=== PATIENT | female | born 1950 | race Hispanic/Latino ===

== ENCOUNTER 2020-04-15 14:12 | Emergency (ER) | payer SELFPAY ==
[2020-04-15 15:22] LABS: Absolute Lymphocytes (CBC) 1.4 K/uL (0.7-4.9); Basophils % 0.3 % (0-1.3); Hematocrit 36.5 % (36.0-45.0); Lymphocytes % 22.1 % (15.3-44.8); MPV 7.6 fL (7.6-11.3); RBC Red Blood Cell Count 4.14 M/uL (3.86-4.86)
[2020-04-15] MEDS ORDERED: NA CHLORIDE 0.9% 1,000 ML ONE (15:27)
[2020-04-15 15:38] LABS: Bilirubin Direct 0.1 mg/dL (0-0.2); Bilirubin Total 0.4 mg/dL (0.2-1.0); Potassium 3.6 mmol/L (3.5-5.1); Protein, Total 7.9 g/dL (6.4-8.2)
[2020-04-15 15:39] LABS: Urine Blood NEGATIVE (NEG); Urine Glucose NEGATIVE (NEG); Urine Protein 2+ (NEG); Urine Specific Gravity >1.030 (1.005-1.030); Urine pH 5.5 (5.0-7.0)
[2020-04-15 15:53] LABS: Urine Bacteria 20-50 /HPF (<20); Urine Culture Reflex Order REFLEXED; Urine RBC NONE SEEN /HPF (NONE SEEN)
--- NOTE | 2020-04-15 16:12 | EDPHYS ---
Physician Documentation [facility] Name: Luz Nichols Age: 69 yrs Sex: Female : 1950 Arrival Date: 04/15/2020 Time: 14:19 Bed 19 Private MD: ED Physician Bernardo Sargent HPI: 04/15 14:59 This 69 yrs old Female presents to ER via EMS with complaints of Diarrhea. pm1 14:59 The patient presents to the emergency department with nausea, that is mild, diarrhea, 3 pm1 times per day for the past 3 days. Onset: The symptoms/episode began/occurred 3 day(s) ago. Possible causes: unknown. The symptoms are aggravated by nothing. The symptoms are alleviated by nothing. Associated signs and symptoms: Pertinent positives: decreased appetite, Pertinent negatives: abdominal pain, fever. Severity of symptoms: in the emergency department the symptoms are unchanged. The patient has not experienced similar symptoms in the past. The patient has not recently seen a physician. Historical: - Allergies: 14:21 No Known Allergies; ca1 - PMHx: 14:21 Hypertension; Diabetes - IDDM; Diabetes - NIDDM; High Cholesterol; ca1 - Immunization history:: Adult Immunizations up to date. - Social history:: Smoking status: Patient denies any tobacco usage or history of. ROS: 14:59 Constitutional: Negative for fever, chills, and weight loss, Cardiovascular: Negative pm1 for chest pain, palpitations, and edema, Respiratory: Negative for shortness of breath, cough, wheezing, and pleuritic chest pain. 14:59 Back: Negative for injury and pain, : Negative for injury, bleeding, discharge, and swelling, MS/Extremity: Negative for injury and deformity, Skin: Negative for injury, rash, and discoloration, Neuro: Negative for headache, weakness, numbness, tingling, and seizure. 14:59 Abdomen/GI: Positive for nausea, diarrhea, Negative for abdominal pain, vomiting. Exam: 14:59 Constitutional: This is a well developed, well nourished patient who is awake, alert, pm1 and in no acute distress. Head/Face: Normocephalic, atraumatic. Neck: Trachea midline, no thyromegaly or masses palpated, and no cervical lymphadenopathy. Supple, full range of motion without nuchal rigidity, or vertebral point tenderness. No Meningismus. Chest/axilla: Normal chest wall appearance and motion. Nontender with no deformity. No lesions are appreciated. 14:59 Back: No spinal tenderness. No costovertebral tenderness. Full range of motion. Skin: Warm, dry with normal turgor. Normal color with no rashes, no lesions, and no evidence of cellulitis. MS/ Extremity: Pulses equal, no cyanosis. Neurovascular intact. Full, normal range of motion. 14:59 Cardiovascular: Exam negative for acute changes, Rate: normal, Rhythm: regular, Pulses: no pulse deficits are appreciated. 14:59 Respiratory: Exam negative for acute changes, respiratory distress, shortness of breath. 14:59 Abdomen/GI: Inspection: obese Palpation: abdomen is soft and non-tender, in all quadrants. 14:59 Neuro: Exam negative for acute changes, Orientation: is normal, Mentation: is normal, Motor: is normal, moves all fours. Vital Signs: 14:34 BP 170 / 75; Pulse 83; Resp 17 S; Temp 99(O); Pulse Ox 95% on R/A; Weight 86.18 kg (R); ca1 Height 5 ft. 1 in. (154.94 cm) (R); Pain 0/10; 15:32 BP 165 / 80; Pulse 87; Resp 16 S; Pulse Ox 95% on R/A; ca1 16:48 BP 160 / 83; Pulse 88; Resp 15 S; Pulse Ox 96% on R/A; ca1 17:30 BP 149 / 80; Pulse 85; Resp 16 S; Pulse Ox 97% on R/A; aa5 14:34 Body Mass Index 35.90 (86.18 kg, 154.94 cm) ca1 MDM: 14:24 Patient medically screened. [facility] 16:10 Data reviewed: vital signs. Data interpreted: Pulse oximetry: on room air is 95 %. pm1 Interpretation: normal. Counseling: I had a detailed discussion with the patient and/or guardian regarding: the historical points, exam findings, and any diagnostic results supporting the discharge/admit diagnosis, lab results, the need for outpatient follow up, to return to the emergency department if symptoms worsen or persist or if there are any questions or concerns that arise at home. 16:54 ED course: Patient requested additional IV fluids. Patient's vital signs WNLs. will pm1 give additional 500 mL. 04/15 14:35 Order name: Basic Metabolic Panel pm1 04/15 14:35 Order name: CBC with Diff; Complete Time: 16:02 pm1 04/15 14:35 Order name: Hepatic Function pm1 04/15 14:35 Order name: Lipase; Complete Time: 16:02 pm1 04/15 14:35 Order name: Flu; Complete Time: 16:41 pm1 04/15 14:35 Order name: COVID-19 pm1 04/15 14:35 Order name: Urine Microscopic Only; Complete Time: 16:02 pm1 04/15 14:36 Order name: Basic Metabolic Panel; Complete Time: 16:02 EDMS 04/15 14:36 Order name: Liver (Hepatic) Function; Complete Time: 16:02 EDMO 04/15 14:44 Order name: Glucose, Ancillary Testing; Complete Time: 15:15 EDMS 04/15 15:36 Order name: Urine Dipstick--Ancillary (enter results); Complete Time: 16:02 wy 04/15 15:55 Order name: Urine Culture EDMO 04/15 14:35 Order name: IV Saline Lock; Complete Time: 15:20 pm1 04/15 14:35 Order name: Labs collected and sent; Complete Time: 15:20 pm1 04/15 14:35 Order name: Urine Dipstick-Ancillary (obtain specimen); Complete Time: 15:31 pm1 Administered Medications: 15:20 Drug: NS 0.9% 1000 ml Route: IV; Rate: 1000 ml; Site: right forearm; ca1 16:30 Follow up: Response: No adverse reaction; IV Status: Completed infusion; IV Intake: ca1 1000ml 16:57 Drug: NS 0.9% 500 ml Route: IV; Rate: bolus; Site: right forearm; ca1 17:30 Follow up: IV Status: Completed infusion; IV Intake: 500ml aa5 Disposition: 04/16 08:56 Co-signature as Attending Physician, Bernardo Sargent MD I agree with the assessment and alla plan of care. Disposition: 04/15/20 16:11 Discharged to Home. Impression: Diarrhea, unspecified. - Condition is Stable. - Discharge Instructions: Food Choices to Help Relieve Diarrhea, Adult, Diarrhea, Adult, Viral Gastroenteritis, Adult. - Medication Reconciliation Form, Thank You Letter, Antibiotic Education, Prescription Opioid Use form. - Follow up: Emergency Department; When: As needed; Reason: Worsening of condition. Follow up: Private Physician; When: 2 - 3 days; Reason: Recheck today's complaints, Continuance of care, Re-evaluation by your physician. - Problem is new. - Symptoms have improved. Signatures: Dispatcher [employer] EDMS Bernardo Sargent, Carlos Osullivan MD, cha, WASTE MANAGEMENT SPECIALIST WASTE MANAGEMENT SPECIALIST pm1 Amy Alvarado RN RN ca1 Myesha Dubon RN aa5 Corrections: (The following items were deleted from the chart) 04/15 17:50 16:11 04/15/2020 16:11 Discharged to Home. Impression: Diarrhea, unspecified. Condition ca1 is Stable. Forms are Medication Reconciliation Form, Thank You Letter, Antibiotic Education, Prescription Opioid Use. Follow up: Emergency Department; When: As needed; Reason: Worsening of condition. Follow up: Private Physician; When: 2 - 3 days; Reason: Recheck today's complaints, Continuance of care, Re-evaluation by your physician. Problem is new. Symptoms have improved. pm1
--- NOTE | 2020-04-15 16:12 | ER ---
Nurse's Notes [facility] Name: Luz Nichols Age: 69 yrs Sex: Female : 1950 Arrival Date: 04/15/2020 Time: 14:19 Bed 19 Private MD: Diagnosis: Diarrhea, unspecified Presentation: 04/15 14:20 Chief complaint: EMS states: Diarrhea and nausea x 3 days. Coronavirus screen: Client ca1 denies travel out of the [place] in the last 14 days. At this time, the client does not indicate any symptoms associated with coronavirus-19. Ebola Screen: Patient negative for fever greater than or equal to 101.5 degrees Fahrenheit, and additional compatible Ebola Virus Disease symptoms Patient denies exposure to infectious person. Patient denies travel to an Ebola-affected area in the 21 days before illness onset. No symptoms or risks identified at this time. Initial Sepsis Screen:. Risk Assessment: Do you want to hurt yourself or someone else? Patient reports no desire to harm self or others. Onset of symptoms was April 15, 2020. 14:20 Method Of Arrival: EMS: [facility] ca1 14:20 Acuity: MANDY 3 ca1 14:34 Chief complaint: Patient states: General body weakness, loss of appetite, diarrhea x ca1 3-4 episodes last night. Denies abdominal pain. Initial Sepsis Screen: Does the patient meet any 2 criteria? No. Patient's initial sepsis screen is negative. Does the patient have a suspected source of infection? No. Patient's initial sepsis screen is negative. Triage Assessment: 14:34 General: Appears in no apparent distress. comfortable, Behavior is calm, cooperative, ca1 appropriate for age. Pain: Denies pain. EENT: No deficits noted. Neuro: Level of Consciousness is awake, alert, obeys commands, Oriented to person, place, time, situation. Cardiovascular: Heart tones S1 S2 present Capillary refill < 3 seconds Patient's skin is warm and dry. Respiratory: Airway is patent Respiratory effort is even, unlabored, Respiratory pattern is regular, symmetrical, Breath sounds are clear bilaterally. GI: Abdomen is round non-distended, Bowel sounds present X 4 quads. Abd is soft and non tender X 4 quads. Reports diarrhea, nausea. : No signs and/or symptoms were reported regarding the genitourinary system. Derm: Skin is intact, is healthy with good turgor, Skin is pink, warm \T\ dry. Musculoskeletal: Circulation, motion, and sensation intact. Capillary refill < 3 seconds. Historical: - Allergies: 14:21 No Known Allergies; ca1 - PMHx: 14:21 Hypertension; Diabetes - IDDM; Diabetes - NIDDM; High Cholesterol; ca1 - Immunization history:: Adult Immunizations up to date. - Social history:: Smoking status: Patient denies any tobacco usage or history of. Screenin:37 Abuse screen: Denies threats or abuse. Denies injuries from another. Nutritional ca1 screening: No deficits noted. Tuberculosis screening: No symptoms or risk factors identified. Fall Risk IV access (20 points). Assessment: 14:37 Reassessment: see Triage assessment. ca1 15:32 Reassessment: Patient appears in no apparent distress at this time. No changes from ca1 previously documented assessment. Patient and/or family updated on plan of care and expected duration. Pain level reassessed. Patient is alert, oriented x 3, equal unlabored respirations, skin warm/dry/pink. 16:48 Reassessment: Patient appears in no apparent distress at this time. Patient and/or ca1 family updated on plan of care and expected duration. Pain level reassessed. Patient is alert, oriented x 3, equal unlabored respirations, skin warm/dry/pink. 17:16 Reassessment: IVF infusing. D/C once completed. CHONG Brunner, RN called family, will be ca1 here to pick her up at 1740. 17:45 Reassessment: Patient is alert, oriented x 3, equal unlabored respirations, skin aa5 warm/dry/pink. Vital Signs: 14:34 BP 170 / 75; Pulse 83; Resp 17 S; Temp 99(O); Pulse Ox 95% on R/A; Weight 86.18 kg (R); ca1 Height 5 ft. 1 in. (154.94 cm) (R); Pain 0/10; 15:32 BP 165 / 80; Pulse 87; Resp 16 S; Pulse Ox 95% on R/A; ca1 16:48 BP 160 / 83; Pulse 88; Resp 15 S; Pulse Ox 96% on R/A; ca1 17:30 BP 149 / 80; Pulse 85; Resp 16 S; Pulse Ox 97% on R/A; aa5 14:34 Body Mass Index 35.90 (86.18 kg, 154.94 cm) ca1 ED Course: 13:15 No provider procedures requiring assistance completed. Initial lab(s) drawn, by me, ca1 sent to lab. Flu and/or RSV swab sent to lab. Inserted saline lock: 20 gauge in right forearm, using aseptic technique. Blood collected. 14:19 Patient arrived in ED. ca1 14:21 Triage completed. ca1 14:21 Arm band placed on right wrist. ca1 14:23 Carlos Delcid NP is PHCP. pm1 14:23 Bernardo Sargent MD is Attending Physician. pm1 14:34 Amy Alvarado, MARY is Primary Nurse. ca1 14:37 Patient has correct armband on for positive identification. Placed in gown. Bed in low ca1 position. Call light in reach. Side rails up X2. Pulse ox on. NIBP on. Warm blanket given. 15:20 COVID-19 Sent. ca1 15:20 Flu Sent. ca1 17:45 IV discontinued, intact, bleeding controlled, No redness/swelling at site. Pressure aa5 dressing applied. Administered Medications: 15:20 Drug: NS 0.9% 1000 ml Route: IV; Rate: 1000 ml; Site: right forearm; ca1 16:30 Follow up: Response: No adverse reaction; IV Status: Completed infusion; IV Intake: ca1 1000ml 16:57 Drug: NS 0.9% 500 ml Route: IV; Rate: bolus; Site: right forearm; ca1 17:30 Follow up: IV Status: Completed infusion; IV Intake: 500ml aa5 Intake: 16:30 IV: 1000ml; Total: 1000ml. ca1 17:30 IV: 500ml; Total: 1500ml. aa5 Outcome: 16:11 Discharge ordered by . pm1 17:45 Discharged to home via wheelchair, with family. aa5 17:45 Condition: improved 17:45 Discharge instructions given to patient, Instructed on discharge instructions, follow up and referral plans. Demonstrated understanding of instructions, follow-up care, Pt and family instructed to quarantine until called with COVID-19 results (approximately 3-5 days) 17:50 Patient left the ED. ca1 Addendum: 04/19/2020 09:25 Addendum: Culture Results: Positive urine culture. Patient was not prescribed a a5 antibiotics at discharge. Report given to SHANTA for further evaluation and then to calciner feeder for follow up with patient. Prescription called-in to pharmacy of choice. to [facility] pharmacy in [place], [place] per pt's request. Called-in Cipro 500mg PO BID x 7 days per SHITAL [place]. 04/24/2020 16:35 Addendum: COVID-19 Result: Positive result giiven to ED physician to notify pt. i w Physician attempted to contact pt. Physician left voice mail for pt to call the ED back. Signatures: Rosalind Koehler, RN RN iw Myesha Dubon, RN RN aa5 Carlos Delcid, JUAN ANTONIO TELEPHONE ORDER SUPERVISOR pm1 Amy Alvarado RN RN ca1
[2020-04-15] MEDS ORDERED: NA CHLORIDE 0.9% 500 ML ONE (17:02)
== END 2020-04-15 17:50 | disposition home or self-care (01) ==
LOC: ER 14:12
DX: U07.1 COVID-19 (principal); R19.7 Diarrhea, unspecified
CPT/HCPCS: 36415; 80048; 80076; 81003; 81015; 82947; 83690; 85025; 87077; 87086; 87088; 87186; 87804; 96360; 96361; 99284; J7030; J7040; U0002

== ENCOUNTER 2020-05-03 16:43 | Emergency (ER) | payer SELFPAY ==
--- OUTSIDE RECORDS SUMMARY | 2020-05-03 16:45 | XMS REPORT ---
:1950 Author Organization eClinicalWorks Care Team Providers Name Role Phone Howell, Na Provider Role Unavailable Allergies, Adverse Reactions, Alerts Substance Reaction Event Type N.K.D.A. 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 Problem Neuropathy G62.9 Active Problem Osteoarthritis of multiple joints M15.9 Active Problem Abdominal bloating R14.0 Active Problem Type 2 diabetes mellitus with E11.65 Active hyperglycemia Problem Other specified diabetes mellitus E13.319 Active with unspecified diabetic retinopathy without macular edema Assessment Neuropathy G62.9 Active Assessment Mixed hyperlipidemia E78.2 Active 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.4 Active Assessment Primary osteoarthritis of right M17.11 Active knee Problem Obesity E66.9 Active Assessment HTN (hypertension) I10 Active Problem Anemia in chronic illness D63.8 Ac tive Assessment Type 2 diabetes mellitus with E11.65 Active hyperglycemia Problem Mixed hyperlipidemia E78.2 Active Medications Medication Code Code Instructions Start End Status Dosage System Date Date mihaela Ballesteros [facility] 10040169244 300u/ml Active 40 units subcutaneously daily once daily Lyrica [facility] 53242703941 75 MG Orally Once Active 1 capsule a day Amlodipine [facility] NAMED [facility] 96468219258 10MG Active TAKE ONE Besylate TABLET BY MOUTH ONCE DAILY GlipiZIDE [facility] NAM[facility] 37637272576 10MG Active TAKE ONE TABLET BY MOUTH TWICE DAILY Lovastatin [facility] NAMED [facility] 39371825047 10MG Active TAKE ONE TABLET BY MOUTH ONCE DAILY Simethicone [facility] NAM[facility] 55997985774 125 MG Orally Active 1 tablet Four times a day after meals and at bedtime as needed Metformin HCl [facility]AMED [facility] 39868243745 1000MG Active TAKE O NE TABLET BY MOUTH TWICE DAILY Lovastatin [facility]AM[facility] 53683522557 10MG Active TAKE ONE TABLET BY MOUTH ONCE DAILY Lisinopril [facility] NAM[facility] 35817963023 20MG Active TAKE ONE TABLET BY MOUTH TWICE DAILY Januvia [facility]AM[facility] 30954714192 100 MG Orally Active 1 tabl et Once a day Aspir-81 [facility] 04651741625 81 MG Orally Once Active 1 tablet a day Metformin HCl [facility] NAMED [facility] 81861126088 1000MG Active TAKE O NE TABLET BY MOUTH TWICE DAILY [facility] 86314932948 10 MG Orally Once Active 1 tablet a day GlipiZIDE [facility] NAMED [facility] 32002408377 10MG Active TAKE ONE TABLET BY MOUTH TWICE DAILY Lisinopril [facility] NAM[facility] 36240533566 20 MG Active TAKE 1 TABLET BY MOUTH TWICE DAILY [facility] 03336550884 10 MG Orally Once Active 1 tablet a day Results No Known Results Summary Purpose eClinicalWorks Submission
--- OUTSIDE RECORDS SUMMARY | 2020-05-03 16:45 | XMS REPORT ---
:1950 Author Organization [employer]Works Care Team Providers Name Role Phone Howell, Na Provider Role Unavailable Allergies, Adverse Reactions, Alerts Substance Reaction Event Type N.K.D.A. 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 Assessment Fatigue, unspecified type R53.83 Ac tive Assessment Lack of appetite R63.0 Active Assessment Diarrhea of infectious origin A09 Active Problem DM (diabetes mellitus), type 2 E11.9 Active Problem Diabetic neuropathy E11.40 Active Assessment Lab test positive for detection of U07.1 Active COVID-19 virus Problem HTN (hypertension) I10 Active Problem Abdominal bloating R14.0 Active Medications Medication Code Code Instructions Start End Status Dosage System Date [facility] 06353302044 100 MG Orally Active 1 tabl et Once a day Simethicone [facility] 93188233411 125 MG Orally Active 1 tablet Four times a day after meals and at bedtime as needed [facility] 88124152045 10 MG Orally Once Active 1 tablet a day Lyrica [facility] 28441890749 75 MG Orally Once Active 1 capsule a day GlipiZIDE [facility] 59854916536 10MG Active TAKE ONE TABLET BY MOUTH TWICE DAILY Amlodipine [facility] 85628851230 10MG Active TAKE ONE Besylate TABLET BY MOUTH ONCE DAILY GlipiZIDE [facility] 08137441898 10MG Active TAKE ONE TABLET BY MOUTH TWICE DAILY [facility] 79131009834 10 MG Orally Once Active 1 tablet a day Lovastatin [facility] 42417614915 10MG Active TAKE ONE TABLET BY MOUTH ONCE DAILY Lovastatin [facility] 90120648026 10MG Active TAKE ONE TABLET BY MOUTH ONCE DAILY Lisinopril [facility] 73061912764 20 MG Active TAKE 1 TABLET BY MOUTH TWICE DAILY Metformin HCl [facility] 61462999195 1000MG Active TAKE O NE TABLET BY MOUTH TWICE DAILY Feliberto Ballesteros [facility] 80092100516 300u/ml Active 40 units subcutaneously daily once daily Aspir-81 [facility] 11493231982 81 MG Orally Once Active 1 tablet a day Results No Known Results Summary Purpose eClinicalWorks Submission
--- OUTSIDE RECORDS SUMMARY | 2020-05-03 16:45 | XMS REPORT ---
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 knee Problem half-way current use of insulin Z79.4 Active Problem Neuropathy G62.9 Active Problem Osteoarthritis of multiple joints M15.9 Active Problem Abdominal bloating R14.0 Active Problem Type 2 diabetes mellitus with E11.65 Active hyperglycemia Problem Other specified diabetes mellitus E13.319 Active with unspecified diabetic retinopathy without macular edema Medications Medication Code System Code Instructions Start Date End Date Status Dosage Lisinopril [facility] 55266990255 20 MG Active TAKE 1 TABLET BY MOUTH TWICE DAILY Results No Known Results Summary Purpose eClinicalWorks Submission
--- OUTSIDE RECORDS SUMMARY | 2020-05-03 16:45 | XMS REPORT | Continuity of Care Document ---
:1950 Author Organization [facility] t Address [address] [place] [address] Care Team Providers Name Role Phone Unavailable Unavailable Unavailable Problems Condition Condition Condition Status Onset Resolution Last Treating Co mments Source Name Details Category Date Date Treatment Clinician Date Diabetic Diabetic Problem [facility] - [facility] l [facility] Clinics Obesity Obesity Problem [facility] HTN HTN Problem Active [facility] (hypertens (hypertens Muna kes - ion) ion) Memoria l [facility] ent Clinics terminal superintendent MCFP Problem Active [facility] current current [facility] - use of use of Memoria insulin insulin l [facility] Mixed Mixed Problem Active [facility] hyperlipid hyperlipid Muna kes - emia emia Memoria l [facility] ent Clinics Type 2 Type [address] [facility] diabetes diabetes [facility] - mellitus mellitus Memori a with with l hyperglyce hyperglyce Ou [facility] ent Clinics Osteoarthr Osteoarthr Problem Active [facility] itis of itis of [facility] - multiple multiple Memori a joints joints l 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 Other Other Problem Active [facility] specified specified Luke s - diabetes diabetes Memori a mellitus mellitus l with with Outpati unspecifie unspecifie en t d diabetic d diabetic Cl inics retinopath retinopath y without y without macular macular edema edema DM DM Problem Active [facility] (diabetes (diabetes Luke s - mellitus), mellitus), Me moria type 2 type 2 l [facility] Primary Primary Problem Active [facility] osteoarthr osteoarthr Muna kes - itis of itis of Memoria right knee right knee l [facility] ent Clinics Neuropathy Neuropathy Problem Active [facility] l [facility] Lack of Lack of Diagnosis Active [facility] appetite appetite [facility] - [facility] l [facility] ent Clinics Fatigue, Fatigue, Diagnosis Active [facility] unspecifie unspecifie Muna kes - d type d type Memoria l [facility] ent [facility] Diarrhea Diarrhea Diagnosis Active [facility] of of [facility] - infectious infectious Me moria origin origin l [facility] ent [facility] Lab test Lab test Diagnosis Active [facility] positive positive [facility] - for for Memoria detection detection l of of [facility] COVID-19 COVID-19 ent virus virus Clinics Allergies, Adverse Reactions, Alerts This patient has no known allergies or adverse reactions. Medications Ordered Filled Start Stop Current Ordering Indication Dosage Frequency Signature Comments Components Source Medication Medication Date Date Medication? Clinician (SIG) Name Name Lisinopril Lisinopril Yes Na Howell TAKE [address] [facility] [address] TABLET BY [facility]ukes - MOUTH Memoria TWICE l DAILY [facility] ent [facility] Januvia Januvia Yes Na Howell [address] [facility] l [facility] Simethicone Simethicone Yes Na Howell [address] [facility] after [facility] - meals and Memoria at bedtime l as needed [facility] ent [facility] Yes Na Howell [address] [facility] Lyrica Lyrica Yes Na Howell [address] [facility] GlipiZIDE GlipiZIDE Yes Na Howell TAKE ONE [facility] TABLET BY [facility] - MOUTH Memoria TWICE l DAILY [facility] Amlodipine Amlodipine Yes Na Howell TAKE ONE [facility] Besylate Besylate TABLET BY Muna kes - MOUTH ONCE Memoria DAILY l [facility] ent [facility] GlipiZIDE GlipiZIDE Yes Na Howell TAKE ONE [facility] TABLET BY [facility] - MOUTH Memoria TWICE l DAILY [facility] ent [facility] Yes Na Howell [address] [facility] Lovastatin Lovastatin Yes Na Howell TAKE ONE [facility] TABLET BY [facility] - MOUTH ONCE Memoria DAILY l [facility] Lovastatin Lovastatin Yes Na Howell TAKE ONE [facility] TABLET BY [facility] - MOUTH ONCE Memoria DAILY l [facility] ent [facility] Metformin Metformin Yes Na Howell TAKE ONE [facility] HCl HCl TABLET BY [facility] - MOUTH Memoria TWICE l DAILY Outpati ent Clinics Feliberto Dao Yes Na Howell [address] SoloStar SoloStar daily [facility] l Outpati ent Clinics -81 Aspir-81 Yes Na Howell [address] [facility] l Outpati ent Clinics Procedures This patient has no known procedures. Encounters Start End Encounter Admission Attending Care Care Encounter Source Date/Time Date/Time Type Type Clinicians Facility Department ID 2020-04-27 2020-04-27 [facility] [id number] [facility] 15:20:00 15:20:00 [employer] [facility] Out[facility] ent Clinics 2020-04-24 2020-04-24 [facility] [id number] 14:06:00 14:06:00 t [employer] [facility] Outpat[facility] ent Clinics 2020-02-24 2020-02-24 [facility] [id number] 16:20:00 16:20:00 [employer] [facility] Out[facility] ent Clinics 2019-09-30 2019-09-30 [facility] [id number] 08:40:00 08:40:00 t [employer] [facility] Outpati ent Clinics 2019-06-30 2019-06-30 [facility] [id number] [address] 09:20:00 09:20:00 [employer] [facility] Outpat[facility] ent Clinics 2019-03-11 2019-03-11 [facility] [id number] 08:00:00 08:00:00 t [employer] [facility] Outpat[facility] ent Clinics 2018-12-10 2018-12-10 [facility] [id number] [address] 08[facility]00:00 08:00:00 t [employer] [facility] Outpat[facility] ent Clinics 2018-09-11 2018-09-11 [facility] [id number] 08:30:00 08:30:00 t [employer] [facility] Outpat[facility] ent Clinics 2018-03-10 2018-03-10 Outpatient Gisele Jaquezt [id number] 08:15:00 08:15:00 t [employer] [facility] 2017-12-30 2017-12-30 Outpatient Gisele Jaquezt [id number] 12:00:00 12:00:00 [employer] [facility] 2017-11-24 2017-11-24 Outpatient Gisele Jaquezt [id number] [facility] [address] 10:30:00 10:30:00 t [employer] [facility] ent Clinics Results This patient has no known results.
[2020-05-03] MEDS ORDERED: FLEET ENEMA ADULT PR ONE (17:19)
[2020-05-03] MEDS ORDERED: NA CHLORIDE 0.9% 500 ML ONE (17:19)
[2020-05-03 17:23] LABS: Absolute Lymphocytes (CBC) 2.1 K/uL (0.7-4.9); Basophils % 0.4 % (0-1.3); Hematocrit 38.1 % (36.0-45.0); Lymphocytes % 23.8 % (15.3-44.8)
[2020-05-03] MEDS ORDERED: MAGNESIUM CITRATE 300 ML BOT ONE (17:32)
[2020-05-03 17:42] LABS: Albumin 3.6 g/dL (3.4-5.0); Bilirubin Direct 0.2 mg/dL (0-0.2); Bilirubin Total 0.5 mg/dL (0.2-1.0); Potassium 4.5 mmol/L (3.5-5.1); Protein, Total 8.2 g/dL (6.4-8.2)
--- NOTE | 2020-05-03 19:03 | ER ---
Nurse's Notes [facility] Name: Luz Nichols Age: 69 yrs Sex: Female : 1950 Arrival Date: 05/03/2020 Time: 16:45 Bed 7 Private MD: Irma Howell Diagnosis: Fecal impaction Presentation: 05/03 16:57 Chief complaint: Patient's son or daughter states: Daughter: Constipation x 4 days. 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 Coronavirus screen: Client denies travel out of the [place] in the last 14 days. At this time, the client does not indicate any symptoms associated with coronavirus-19. Ebola Screen: Patient negative for fever greater than or equal to 101.5 degrees Fahrenheit, and additional compatible Ebola Virus Disease symptoms Patient denies exposure to infectious person. Patient denies travel to an Ebola-affected area in the 21 days before illness onset. No symptoms or risks identified at this time. Initial Sepsis Screen: Does the patient meet any 2 criteria? No. Patient's initial sepsis screen is negative. Does the patient have a suspected source of infection? No. Patient's initial sepsis screen is negative. Risk Assessment: Do you want to hurt yourself or someone else? Patient reports no desire to harm self or others. Onset of symptoms was May 03, 2020. 16:57 Method Of Arrival: Wheelchair ca1 16:57 Acuity: MANDY 3 ca1 Historical: - Allergies: 17:00 No Known Allergies; ca1 - PMHx: 17:00 Diabetes - NIDDM; Diabetes - IDDM; High Cholesterol; Hypertension; ca1 - Immunization history:: Adult Immunizations up to date. - Social history:: Smoking status: Patient denies any tobacco usage or history of. - Family history:: not pertinent. - Hospitalizations: : No recent hospitalization is reported. Screenin:00 Abuse screen: Denies threats or abuse. Denies injuries from another. Nutritional jl7 screening: No deficits noted. Tuberculosis screening: No symptoms or risk factors identified. Fall Risk IV access (20 points). Total Wright Fall Scale indicates No Risk (0-24 pts). Assessment: 17:00 General: Appears in no apparent distress. uncomfortable, obese, Behavior is calm, jl7 cooperative. Pain: Denies pain. Neuro: Level of Consciousness is awake, alert, obeys commands. Cardiovascular: Patient's skin is warm and dry. Respiratory: Airway is patent Respiratory effort is even, unlabored, Respiratory pattern is regular, symmetrical. GI: Abdomen is round non-distended, obese, Stools are reported to be constipated. Bowel sounds present X 4 quads. Abd is soft and non tender. : No signs and/or symptoms were reported regarding the genitourinary system. Derm: Skin is pink, warm \T\ dry. 17:15 Reassessment: Pt refusing cat scan at this time. ERD notified. jl7 18:04 Reassessment: Assisted pt to restroom via wheelchair, daughter accompanied pt to 7 restroom. 18:30 Reassessment: Pt's daughter attempting to disimpact pt. jl7 18:45 Reassessment: Pt's daughter unable to disimpact pt, ERD at bedside to disimpact at this jl7 time. 19:20 Reassessment: Patient and/or family updated on plan of care and expected duration. Pain ca1 level reassessed. Patient is alert, oriented x 3, equal unlabored respirations, skin warm/dry/pink. PATIENT ABLE TO HAVE BM. General: Appears uncomfortable, Behavior is cooperative. Vital Signs: 16:57 BP 155 / 70; Pulse 91; Resp 16 S; Temp 97.2(TE); Pulse Ox 98% ; Weight 81.65 kg; ca1 18:04 BP 144 / 67; Pulse 87; Resp 15; Pulse Ox 98% ; jl7 19:30 BP 151 / 70; Pulse 72; Resp 16; Pulse Ox 97% ; Pain 0/10; ca1 ED Course: 16:45 Patient arrived in ED. as 16:45 Irma Howell MD is Private Physician. as 16:55 Armand Zimmerman MD is Attending Physician. rn 16:57 Hussain Thomas RN is Primary Nurse. jl7 16:59 Triage completed. ca1 17:00 Arm band placed on right wrist. ca1 17:00 Patient has correct armband on for positive identification. Placed in gown. Bed in low jl7 position. Call light in reach. Side rails up X2. Pulse ox on. NIBP on. Warm blanket given. 17:10 Initial lab(s) drawn, by me, sent to lab. Inserted saline lock: 20 gauge in right jl7 forearm, using aseptic technique. Blood collected. 17:39 Radiology exam delayed due to PT refusing oral contrast and CT exam at this time. 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 jl7 19:28 IV discontinued, intact, bleeding controlled, No redness/swelling at site. Pressure ca1 dressing applied. Administered Medications: 17:15 Drug: NS 0.9% 500 ml Route: IV; Rate: bolus; Site: right forearm; jl7 17:45 Follow up: Response: No adverse reaction; IV Status: Completed infusion; IV Intake: jl7 500ml 19:30 Follow up: Response: No adverse reaction; IV Status: Completed infusion ca1 17:22 Drug: Magnesium Citrate Liquid 300 ml Route: PO; jl7 19:29 Follow up: Response: No adverse reaction; Other; PT HAD BM ca1 18:05 Drug: Fleet Enema 133 ml Route: [place]; jl7 19:30 Follow up: Response: No adverse reaction ca1 Intake: 17:45 IV: 500ml; Total: 500ml. [facility] Outcome: 19:02 Discharge ordered by . rn 19:21 Discharged to home ambulatory. ca1 19:21 Condition: stable 19:21 Condition: stable 19:21 Discharge instructions given to patient, family. 19:30 Patient left the ED. ca1 Signatures: Angely Harper Roman, MD MD rn Leal, Jahala, RN RN 7 Aissatou Garcia [facility] Amy Alvarado RN RN ca1
--- NOTE | 2020-05-03 19:03 | EDPHYS ---
[facility] Name: Luz Nichols Age: 69 yrs Sex: Female : 1950 Arrival Date: 05/03/2020 Time: 16:45 Bed 7 Private MD: Irma Howell ED Physician Armand Zimmerman HPI: 05/03 17:20 This 69 yrs old Female presents to ER via Wheelchair with complaints of rn Constipation. 17:20 The patient presents with. The patient presents with abdominal pain. Onset: The rn symptoms/episode began/occurred 4 day(s) ago. Associated signs and symptoms: Pertinent positives: constipation, Pertinent negatives: anorexia, blood in stools, fever, shortness of breath. The symptoms are described as crampy. Modifying factors: The symptoms are alleviated by nothing, the symptoms are aggravated by nothing. 17:21 Severity of pain: At its worst the pain was mild in the emergency department the pain rn is unchanged. Unable to obtain HPI due to. The patient has experienced a previous episode. Reports constipation for 4 days, is passing gas, has happened before, came here, given "white fluid to drink", relieved her constipation and symptoms and able to go home. Requests same treatment. reports mild nausea after drinking homemade constipation cocktail. Denies abdominal distension or hernia.. Historical: - Allergies: 17:00 No Known Allergies; ca1 - PMHx: 17:00 Diabetes - NIDDM; Diabetes - IDDM; High Cholesterol; Hypertension; ca1 - Immunization history:: Adult Immunizations up to date. - Social history:: Smoking status: Patient denies any tobacco usage or history of. - Family history:: not pertinent. - Hospitalizations: : No recent hospitalization is reported. ROS: 17:21 Constitutional: Negative for fever, chills, and weight loss, Cardiovascular: Negative rn for chest pain, palpitations, and edema, Respiratory: Negative for shortness of breath, cough, wheezing, and pleuritic chest pain, Abdomen/GI: Negative for vomiting, diarrhea Back: Negative for injury and pain, : Negative for injury, bleeding, discharge, and swelling, MS/Extremity: Negative for injury and deformity, Skin: Negative for injury, rash, and discoloration, Neuro: Negative for headache, weakness, numbness, tingling, and seizure. Exam: 17:21 Constitutional: Overweight female, no acute distress Head/Face: Normocephalic, rn atraumatic. Cardiovascular: Regular rate and rhythm. No pulse deficits. Respiratory: No increased work of breathing, no retractions or nasal flaring. Abdomen/GI: Soft, non-tender, no rebound, no masses Skin: Warm, dry MS/ Extremity: Pulses equal, no cyanosis. Neurovascular intact. Full, normal range of motion. Equal circumference. Neuro: Awake and alert, GCS 15, oriented to person, place, time, and situation. Vital Signs: 16:57 BP 155 / 70; Pulse 91; Resp 16 S; Temp 97.2(TE); Pulse Ox 98% ; Weight 81.65 kg; ca1 18:04 BP 144 / 67; Pulse 87; Resp 15; Pulse Ox 98% ; jl7 19:30 BP 151 / 70; Pulse 72; Resp 16; Pulse Ox 97% ; Pain 0/10; ca1 Procedures: 18:57 Fecal disimpaction: digital disimpaction was performed, with a large amount of stool rn expressed. The patient tolerated the intervention well, rectum evacuated completely, tolerated well.. MDM: 16:55 Patient medically screened. rn 17:31 Refusal of service: The patient/guardian displays adequate decision making capability rn and despite a detailed discussion of alternatives, benefits, risks, and consequences refuses: CT Scan. 18:57 Differential diagnosis: constipation, fecal impaction. Data reviewed: vital signs, rn nurses notes, lab test result(s), and as a result, I will discharge patient. Counseling: I had a detailed discussion with the patient and/or guardian regarding: the historical points, exam findings, and any diagnostic results supporting the discharge/admit diagnosis, the presence of at least one elevated blood pressure reading (>120/80) during this emergency department visit, lab results, radiology results, the need for outpatient follow up, to return to the emergency department if symptoms worsen or persist or if there are any questions or concerns that arise at home. Response to treatment: the patient's symptoms have markedly improved after treatment. 05/03 17:04 Order name: Basic Metabolic Panel; Complete Time: 17:47 rn 05/03 17:04 Order name: CBC with Diff; Complete Time: 17:26 rn 05/03 17:04 Order name: Hepatic Function; Complete Time: 17:47 rn 05/03 17:04 Order name: Lipase; Complete Time: 17:47 rn 05/03 17:04 Order name: IV Saline Lock; Complete Time: 17:22 rn 05/03 17:04 Order name: Labs collected and sent; Complete Time: 17:22 rn Administered Medications: 17:15 Drug: NS 0.9% 500 ml Route: IV; Rate: bolus; Site: right forearm; jl7 17:45 Follow up: Response: No adverse reaction; IV Status: Completed infusion; IV Intake: jl7 500ml 19:30 Follow up: Response: No adverse reaction; IV Status: Completed infusion ca1 17:22 Drug: Magnesium Citrate Liquid 300 ml Route: PO; jl7 19:29 Follow up: Response: No adverse reaction; Other; PT HAD BM ca1 18:05 Drug: Fleet Enema 133 ml Route: [place]; jl7 19:30 Follow up: Response: No adverse reaction ca1 Disposition: 05/03/20 19:02 Discharged to Home. Impression: Fecal impaction. - Condition is Stable. - Discharge Instructions: Fecal Impaction. - Medication Reconciliation Form, Thank You Letter, Antibiotic Education, Prescription Opioid Use form. - Follow up: Private Physician; When: As needed; Reason: Recheck today's complaints, Re-evaluation by your physician. - Problem is new. - Symptoms have improved. Signatures: Dispatcher [employer] EDMS Armand Zimmerman MD MD rn Leal, Jahala RN RN jl7 Amy Alvarado RN RN ca1 Corrections: (The following items were deleted from the chart) 17:30 17:21 Constitutional: Overweight female, no acute distress Cardiovascular: Regular rate rn and rhythm. No pulse deficits. Respiratory: No increased work of breathing, no retractions or nasal flaring. Abdomen/GI: Soft, non-tender, no rebound, no masses Skin: Warm, dry rn 19:30 19:02 05/03/2020 19:02 Discharged to Home. Impression: Fecal impaction. Condition is ca1 Stable. Forms are Medication Reconciliation Form, Thank You Letter, Antibiotic Education, Prescription Opioid Use. Follow up: Private Physician; When: As needed; Reason: Recheck today's complaints, Re-evaluation by your physician. Problem is new. Symptoms have improved. rn
[2020-05-03 19:38] VITALS: TEMP 97.2
[2020-05-03 19:41] VITALS: BP 151/70; O2SAT 97
== END 2020-05-03 19:30 | disposition home or self-care (01) ==
LOC: ER 16:43
DX: K56.41 Fecal impaction (principal); I10 Essential (primary) hypertension
CPT/HCPCS: 36415; 80048; 80076; 83690; 85025; 99284; J7040

== ENCOUNTER 2022-01-12 17:07 | Emergency (ER) | payer SELFPAY ==
--- OUTSIDE RECORDS SUMMARY | 2022-01-12 17:09 | XMS REPORT | Continuity of Care Document ---
:1950 Author Organization [facility] t Address [address] [place] [address] Care Team Providers Name Role Phone Greg Howell Attending Clinician Unavailable Problems This patient has no known problems. Allergies, Adverse Reactions, Alerts This patient has no known allergies or adverse reactions. Medications Ordered Filled Start Stop Current Ordering Indication Dosage Frequency Signature Comments Components Source Medication Medication Date Date Medication? Clinician (SIG) Name Name Lisinopril Lisinopril Yes Na Howell TAKE 1 Common TABLET BY [facility] DAILY [facility] Januvia Januvia Yes Na Howell 1 tablet Co mmon [facility] Simethicone Simethicone Yes Na Howell 1 tablet Common after [facility] meals and - [facility] at [facility] as needed [facility] Yes Na Howell 1 tablet Co mmon [facility] Lyrica Lyrica Yes Na Howell 1 capsule Com mon [facility] GlipiZIDE GlipiZIDE Yes Na Howell TAKE ONE Common TABLET BY [facility] M[facility] - [facility] DAILY [facility] Amlodipine Amlodipine Yes Na Howell TAKE ONE Common Besylate Besylate TABLET BY Sp jair MOUTH ONCE - [facility] DAILY [facility] GlipiZIDE GlipiZIDE Yes Na Howell TAKE ONE Common TABLET BY [facility] - [facility] DAILY [facility] Yes Na Howell 1 tablet Co mmon [facility] Lovastatin Lovastatin Yes Na Hwoell TAKE ONE Common TABLET BY [facility] MOUTH ONCE - [facility] DAILY [facility] Lovastatin Lovastatin Yes Na Howell TAKE ONE Common TABLET BY [facility] MOUTH ONCE - [facility] DAILY [facility] Metformin Metformin Yes Na Howell TAKE ONE Common HCl HCl TABLET BY [facility] M[facility] - [facility] TWICE DAILY [facility] Feliberto Dao Yes Na Howell 40 units Com mon SoloStar SoloStar daily [facility] Aspir-81 Aspir-81 Yes Na Howell 1 tablet Common [facility] Procedures This patient has no known procedures. Encounters Start End Encounter Admission Attending Care Care Encounter Source Date/Time Date/Time Type Type Clinicians Facility Department ID 2021-12-25 Outpatient Howell, Na STLMLC STLMLC [id number] Common 15:24:02 [facility] 2021-12-05 Outpatient Howell, Na STLMLC STLMLC [id number] 2 Common 11:38:00 [facility] 2021-10-26 Outpatient Howell, Na STLMLC STLMLC [id number] 2 Common 11:28:00 [facility] 2021-09-19 Outpatient Howell, Na STLMLC STLMLC [id number] 2 Common 14:21:22 [facility] 2021-09-19 Outpatient Howell, Na STLMLC STLMLC [id number] 2 Common 14:19:51 [facility] 2021-09-19 Outpatient Howell, Na STLMLC STLMLC [id number] 2 Common 13:35:39 [id number] [facility] 2021-09-19 Outpatient Howell, Na STLMLC STLMLC [id number] 2 Common 12:57:41 [id number] [facility] 2021-09-19 Outpatient Howell, Na STLMLC STLMLC [id number] 2 Common 12:26:32 [id number] [facility] 2021-09-19 Outpatient Howell, Na STLMLC STLMLC [id number] 2 Common 12:09:32 [id number] [facility] 2021-09-19 Outpatient Howell, Na STLMLC STLMLC [id number] 2 Common 11:44:35 [id number] [facility] 2021-09-19 Outpatient Howell, Na STLMLC STLMLC [id number] 2 Common 11:29:46 [id number] [facility] 2021-09-19 Outpatient Howell, Na STLMLC STLMLC [id number] 2 Common 11:29:23 [id number] [facility] 2021-09-19 Outpatient Howell, Na STLMLC STLMLC [id number] 2 Common 11:19:57 [id number] [facility] 2021-09-19 Outpatient Howell, Na STLMLC STLMLC [id number] 2 Common 11:05:32 [id number] [facility] 2021-09-19 Outpatient Howell, Na STLMLC STLMLC [id number] 2 Common 11:04:17 [id number] [facility] 2021-12-27 2021-12-27 ambulatory STLMLC STLMLC [id number] Common 00:00:00 00:00:00 [facility] 2021-07-30 2021-07-30 ambulatory STLMLC STLMLC [id number] Common 00:00:00 00:00:00 [facility] 2021-04-02 2021-04-02 Outpatient STLMLC STLMLC [id number] Common 00:00:00 00:00:00 [facility] 2020-12-27 2020-12-27 Outpatient STLMLC STLMLC [id number] Common 00:00:00 00:00:00 [facility] 2020-12-21 2020-12-21 Outpatient STLMLC STLMLC [id number] Common 00:00:00 00:00:00 [facility] 2020-10-27 2020-10-27 Outpatient STLMLC STLMLC [id number] Common 00:00:00 00:00:00 [facility] 2020-10-23 2020-10-23 Outpatient STLMLC STLMLC [id number] Common 00:00:00 00:00:00 [facility] 2020-09-22 2020-09-22 Outpatient STLMLC STLMLC [id number] Common 00:00:00 00:00:00 [facility] 2020-09-08 2020-09-08 Outpatient STLMLC STLMLC [id number] Common 00:00:00 00:00:00 [facility] 2020-07-26 2020-07-26 Outpatient STLMLC STLMLC [id number] Common 00:00:00 00:00:00 [facility] 2020-07-24 2020-07-24 Outpatient STLMLC STLMLC [id number] Common 00:00:00 00:00:00 [facility] 2020-06-08 2020-06-08 Outpatient STLMLC STLMLC [id number] Common 00:00:00 00:00:00 [facility] 2020-05-03 2020-05-03 [id number] Common 16:03:00 16:03:[address] [facility] 2020-04-27 2020-04-27 [facility] [id number] Common 15:20:00 15:20:[address] [facility] 2020-04-24 2020-04-24 [facility] [id number] Common 14:06:00 14:06:[address] [facility] 2020-02-24 2020-02-24 [facility] [id number] Common 16:20:00 16:20:[address] [facility] 2019-09-30 2019-09-30 [facility] [id number] Common 08:40:00 08:40:[address] [facility] 2019-06-30 2019-06-30 [facility] [id number] Common 09:20:00 09:20:[address] [facility] 2019-03-11 2019-03-11 [facility] [id number] Common 08:00:00 08:00:[address] [facility] 2018-12-10 2018-12-10 [facility] [id number] Common 08:00:00 08:00:[address] [facility] 2018-09-11 2018-09-11 [facility] [id number] Common 08:30:00 08:30:[address] [facility] 2018-03-10 2018-03-10 [facility] [id number] Common 08:15:00 08:15:[address] [facility] 2017-12-30 2017-12-30 [facility] [id number] Common 12:00:00 12:00:[address] [facility] 2017-11-24 2017-11-24 [facility] [id number] Common 10:30:00 10:30:[address] [facility] Results This patient has no known results.
[2022-01-12 18:53] LABS: Urine Blood Trace-intact (Negative); Urine Glucose 1+ (Negative); Urine Protein Negative (Negative); Urine Specific Gravity 1.015 (1.005-1.030)
[2022-01-12 19:27] LABS: Absolute Lymphocytes (CBC) 2.7 K/uL (0.7-4.9); Hematocrit 36.4 % (36.0-45.0); Lymphocytes % 28.2 % (15.3-44.8); MPV 8.9 fL (7.6-11.3); RBC Red Blood Cell Count 4.06 M/uL (3.86-4.86)
--- NOTE | 2022-01-12 19:37 | RAD REPORT ---
EXAM DESCRIPTION: RAD - Chest Single View - 01/12/2022 6:48 pm CLINICAL HISTORY: CONGESTIONand weakness COMPARISON: None TECHNIQUE: AP portable chest image was obtained 01/12/2022 6:48 pm . FINDINGS: No focal mass consolidation. Prominence of the interstitial pattern is suspected to be bas reyna for the patient. Heart size is upper normal to slightly enlarged. Vasculature upper normal as w ell. Significant failure or volume overload are not suspected. No measurable pleural effusion and no pneumothorax. No acute bony abnormality seen. No acute aortic findings suspected. IMPRESSION: Mild cardiomegaly and mild prominence of the central vasculature. No significant failure or volume overload seen. Mild or early edema changes would be possible.
[2022-01-12 19:43] LABS: Albumin 3.8 g/dL (3.4-5.0); Bilirubin Direct 0.1 mg/dL (0-0.2); Bilirubin Total 0.4 mg/dL (0.2-1.0); Magnesium 1.9 mg/dL (1.8-2.4); Potassium 4.2 mmol/L (3.5-5.1); Protein, Total 7.8 g/dL (6.4-8.2); Troponin High Sensitivity 5.8 pg/mL (<58.9)
--- NOTE | 2022-01-12 22:35 | EDPHYS ---
Physician Documentation [facility] Name: Luz Nichols Age: 71 yrs Sex: Female : 1950 Arrival Date: 01/12/2022 Time: 17:09 Bed 2 Private MD: Irma Howell ED Physician Bernardo Sargent HPI: 01/12 22:27 This 71 yrs old Female presents to ER via Ambulatory with complaints of alla Weakness, Dizziness, Dehydrated. Historical: - Allergies: 17:22 No Known Allergies; iw - PMHx: 17:22 Diabetes - IDDM; Diabetes - NIDDM; High Cholesterol; Hypertension; iw - Immunization history:: Adult Immunizations up to date. - Social history:: Smoking status: unknown. ROS: 22:29 Constitutional: Negative for fever, chills, and weight loss, Eyes: Negative for injury, alla pain, redness, and discharge, ENT: Negative for injury, pain, and discharge, Neck: Negative for injury, pain, and swelling, Cardiovascular: Negative for chest pain, palpitations, and edema, Respiratory: Negative for shortness of breath, cough, wheezing, and pleuritic chest pain, Abdomen/GI: Negative for abdominal pain, nausea, vomiting, diarrhea, and constipation, Back: Negative for injury and pain, : Negative for injury, bleeding, discharge, and swelling, MS/Extremity: Negative for injury and deformity, Skin: Negative for injury, rash, and discoloration, Psych: Negative for depression, anxiety, suicide ideation, homicidal ideation, and hallucinations, Allergy/Immunology: Negative for hives, rash, and allergies, Endocrine: Negative for neck swelling, polydipsia, polyuria, polyphagia, and marked weight changes, Hematologic/Lymphatic: Negative for swollen nodes, abnormal bleeding, and unusual bruising. 22:29 Neuro: Positive for weakness. Exam: 22:29 Constitutional: This is a well developed, well nourished patient who is awake, alert, alla and in no acute distress. Head/Face: Normocephalic, atraumatic. Eyes: Pupils equal round and reactive to light, extra-ocular motions intact. Lids and lashes normal. Conjunctiva and sclera are non-icteric and not injected. Cornea within normal limits. Periorbital areas with no swelling, redness, or edema. ENT: Nares patent. No nasal discharge, no septal abnormalities noted. Tympanic membranes are normal and external auditory canals are clear. Oropharynx with no redness, swelling, or masses, exudates, or evidence of obstruction, uvula midline. Mucous membranes moist. Neck: Trachea midline, no thyromegaly or masses palpated, and no cervical lymphadenopathy. Supple, full range of motion without nuchal rigidity, or vertebral point tenderness. No Meningismus. Chest/axilla: Normal chest wall appearance and motion. Nontender with no deformity. No lesions are appreciated. Cardiovascular: Regular rate and rhythm with a normal S1 and S2. No gallops, murmurs, or rubs. Normal PMI, no JVD. No pulse deficits. Respiratory: Lungs have equal breath sounds bilaterally, clear to auscultation and percussion. No rales, rhonchi or wheezes noted. No increased work of breathing, no retractions or nasal flaring. Abdomen/GI: Soft, non-tender, with normal bowel sounds. No distension or tympany. No guarding or rebound. No evidence of tenderness throughout. Back: No spinal tenderness. No costovertebral tenderness. Full range of motion. Female : Normal external genitalia. Skin: Warm, dry with normal turgor. Normal color with no rashes, no lesions, and no evidence of cellulitis. MS/ Extremity: Pulses equal, no cyanosis. Neurovascular intact. Full, normal range of motion. Neuro: Awake and alert, GCS 15, oriented to person, place, time, and situation. Cranial nerves II-XII grossly intact. Motor strength 5/5 in all extremities. Sensory grossly intact. Cerebellar exam normal. Normal gait. Psych: Awake, alert, with orientation to person, place and time. Behavior, mood, and affect are within normal limits. 22:29 ECG was reviewed by the Attending Physician. 22:29 Abdomen/GI: Bowel sounds: normal, Palpation: abdomen is soft and non-tender, Liver: no appreciated palpable abnormalities, Hernia: noted in the epigastric area and paraumbilical area. Vital Signs: 17:20 BP 182 / 72; Pulse 83; Resp 16; Temp 97.7; Pulse Ox 98% on R/A; Pain 0/10; iw 23:29 BP 116 / 47; Pulse 84; Resp 16; Pulse Ox 99% on R/A; kd3 MDM: 21:34 Patient medically screened. [facility] 22:31 Data reviewed: vital signs, nurses notes, lab test result(s), EKG, radiologic studies, alla plain films. Data interpreted: security monitor: rate is 83 beats/min, rhythm is regular, Pulse oximetry: on room air is 98 %. Test interpretation: by ED physician or midlevel provider: ECG, plain radiologic studies. Counseling: I had a detailed discussion with the patient and/or guardian regarding: the historical points, exam findings, and any diagnostic results supporting the discharge/admit diagnosis, lab results, radiology results, the need for outpatient follow up, for definitive care, a family practitioner. 01/12 17:33 Order name: Basic Metabolic Panel; Complete Time: 21:50 ma2 01/12 17:33 Order name: CBC with Diff; Complete Time: 21:50 ma2 01/12 17:33 Order name: LFT's; Complete Time: 21:50 ma2 01/12 17:33 Order name: Magnesium; Complete Time: 21:50 ma2 01/12 17:33 Order name: NT PRO-BNP; Complete Time: 21:50 ma2 01/12 17:33 Order name: Troponin HS; Complete Time: 21:50 ma2 01/12 17:33 Order name: XRAY Chest (1 view); Complete Time: 21:50 ma2 01/12 17:33 Order name: EKG; Complete Time: 17:34 ma2 01/12 17:33 Order name: Cardiac monitoring; Complete Time: 22:26 ma2 01/12 17:33 Order name: EKG - Nurse/Tech; Complete Time: 22:25 ma2 01/12 17:33 Order name: IV Saline Lock; Complete Time: 19:07 ma2 01/12 17:33 Order name: Labs collected and sent; Complete Time: 19:07 ma2 01/12 18:53 Order name: Urine Dipstick-Ancillary; Complete Time: 19:21 EDMS 01/12 17:33 Order name: O2 Per Protocol; Complete Time: 18:54 ma2 01/12 17:33 Order name: O2 Sat Monitoring; Complete Time: 18:54 ma2 01/12 17:33 Order name: Urine Dipstick-Ancillary (obtain specimen); Complete Time: 18:54 ma2 01/12 22:27 Order name: PO challenge; Complete Time: 23:01 alla EC:29 Rate is 75 beats/min. Rhythm is regular. QRS Sharples is Normal. TN interval is normal. QRS alla interval is normal. QT interval is normal. No Q waves. T waves are Normal. No ST changes noted. Clinical impression: NSR w/ Non-specific ST/T Changes and No evidence of ischemia. Interpreted by me. Reviewed by me. Administered Medications: 23:00 Drug: NS 0.9% 500 ml Route: IV; Rate: bolus; Site: left hand; [facility] 23:32 Follow up: IV Status: Completed infusion kd3 Disposition Summary: 01/12/22 22:34 Discharge Ordered Location: Home alla Problem: new alla Symptoms: have improved alla Condition: Stable alla Diagnosis - Weakness alla - Morbid (severe) obesity due to excess calories alla - Type 2 diabetes mellitus with hyperglycemia alla Followup: alla - With: Irma Howell MD - When: 2 - 3 days - Reason: Recheck today's complaints, Continuance of care, Re-evaluation by your physician Discharge Instructions: - Discharge Summary Sheet alla - Type 2 Diabetes Mellitus, Diagnosis, Adult alla - Obesity, Adult alla - Weakness alla - Fatigue alla - Diabetes Mellitus and Nutrition, Adult alla - Weakness, [id number] alla - Hyperglycemia, [id number] alla Forms: - Medication Reconciliation Form alla - Thank You Letter alla - Antibiotic Education alla - Prescription Opioid Use alla Signatures: Dispatcher [employer] EDBernardo Peterson MD MD cha Williams, Irene RN Camila Tomas MD MD ma2 Radha Yeboah RN RN kd3 Phyllis Santos RN RN ke1 Sharon Boateng PA PA sb3
--- NOTE | 2022-01-12 22:35 | ER ---
Nurse's Notes [facility] Name: Luz Nichols Age: 71 yrs Sex: Female : 1950 Arrival Date: 01/12/2022 Time: 17:09 Bed 2 Private MD: Irma Howell Diagnosis: Weakness;Morbid (severe) obesity due to excess calories;Type 2 diabetes mellitus with hyperglycemia Presentation: 01/12 17:20 Chief complaint: Patient states: has been feeling very weak for past 4 weeks , now it's iw getting worse over past week , doesn't feel like doing anything, hx of diabetes and hypertension, not eating drinking as much, had some diarrhea but that has resolved , her feet are getting swollen. Coronavirus screen: At this time, the client does not indicate any symptoms associated with coronavirus-19. Ebola Screen: Patient negative for fever greater than or equal to 101.5 degrees Fahrenheit, and additional compatible Ebola Virus Disease symptoms Patient denies exposure to infectious person. Patient denies travel to an Ebola-affected area in the 21 days before illness onset. No symptoms or risks identified at this time. Initial Sepsis Screen: Does the patient meet any 2 criteria? No. Patient's initial sepsis screen is negative. Does the patient have a suspected source of infection? No. Patient's initial sepsis screen is negative. Risk Assessment: Do you want to hurt yourself or someone else? Patient reports no desire to harm self or others. Onset of symptoms was November 2021. 17:20 Method Of Arrival: Ambulatory iw 17:20 Acuity: MANDY 3 iw Triage Assessment: 23:31 General: Appears in no apparent distress. Behavior is calm, cooperative. Pain: Denies kd3 pain. Historical: - Allergies: 17:22 No Known Allergies; iw - PMHx: 17:22 Diabetes - IDDM; Diabetes - NIDDM; High Cholesterol; Hypertension; iw - Immunization history:: Adult Immunizations up to date. - Social history:: Smoking status: unknown. Screenin:31 Abuse screen: Denies threats or abuse. Denies injuries from another. Nutritional kd3 screening: No deficits noted. Tuberculosis screening: No symptoms or risk factors identified. Fall Risk IV access (20 points). Vital Signs: 17:20 BP 182 / 72; Pulse 83; Resp 16; Temp 97.7; Pulse Ox 98% on R/A; Pain 0/10; iw 23:29 BP 116 / 47; Pulse 84; Resp 16; Pulse Ox 99% on R/A; kd3 ED Course: 17:09 Patient arrived in ED. mr 17:09 Irma Howell MD is Private Physician. mr 17:22 Triage completed. iw 17:22 Arm band placed on. iw 18:50 XRAY Chest (1 view) In Process Unspecified. EDMS 19:07 Inserted saline lock: 24 gauge in right hand, using aseptic technique. Blood collected. 21:09 Bed in low position. Call light in reach. Side rails up X 1. Door closed. Noise mb7 minimized. Warm blanket given. 21:34 Radha Yeboah, MARY is Primary Nurse. kd3 21:34 Bernardo Sargent MD is Attending Physician. [facility] 22:02 Assisted to bedside commode. mw1 22:33 Irma Howell MD is Referral Physician. [facility] 23:31 No provider procedures requiring assistance completed. IV discontinued, intact, kd3 bleeding controlled, No redness/swelling at site. Pressure dressing applied. Administered Medications: 23:00 Drug: NS 0.9% 500 ml Route: IV; Rate: bolus; Site: left hand; ke1 23:32 Follow up: IV Status: Completed infusion kd3 Medication: 23:32 VIS not applicable for this client. kd3 Outcome: 22:34 Discharge ordered by . [facility] 23:31 Discharged to home ambulatory, with family. kd3 23:31 Condition: stable 23:31 Discharge instructions given to patient, family, Instructed on discharge instructions, follow up and referral plans. Demonstrated understanding of instructions, follow-up care. 23:32 Patient left the ED. kd3 Signatures: Dispatcher [employer] [facility] Bernardo Sargent MD MD cha Rivera, Mary mr Rosalind Koehler RN RN iw Jayla Lindquist RN RN ss Waits, Michael mw1 Radha Yeboah RN RN kd3 Liz Love mb7 Phyllis Santos RN RN ke1
[2022-01-12] MEDS ORDERED: NA CHLORIDE 0.9% 500 ML ONE (22:57)
[2022-01-12 23:37] VITALS: TEMP 97.7
[2022-01-12 23:39] VITALS: BP 116/47; O2SAT 99
--- NOTE | 2022-01-14 11:27 | EKG ---
Test Date: 2022-01-12 Test Time: 22:11:39 Limnologist: LAURITA MEASUREMENT RESULTS: Intervals: Rate: 75 MA: 184 QRSD: 74 QT: 420 QTc: 469 [place]: P: 41 MA: 184 QRS: 41 T: 46 INTERPRETIVE STATEMENTS: Normal sinus rhythm Nonspecific T wave abnormality Abnormal ECG Compared to ECG 11/25/2007 06:45:26 T-wave abnormality now present Electronically Signed On 01-14-22 11:23:40 CDT by Pranay Cantor
== END 2022-01-12 23:32 | disposition home or self-care (01) ==
LOC: ER 17:07
DX: E11.65 Type 2 diabetes mellitus with hyperglycemia (principal); E66.01 Morbid (severe) obesity due to excess calories; I10 Essential (primary) hypertension
CPT/HCPCS: 36415; 71045; 80048; 80076; 81003; 83735; 83880; 84484; 85025; 93005; 96360; 99284; J7040